=== PATIENT | male | born 1985 | race Caucasian/White ===

== ENCOUNTER 2019-11-14 23:37 | Emergency (ER) | payer SELFPAY ==
[~2019-11-14] VITALS: Ht 188 cm; Wt 83.9 kg
--- NOTE | 2019-11-14 23:50 | NUR ---
Dr. Osorio is at bedside for MSE.
--- NOTE | 2019-11-15 00:18 | NUR ---
Patient discharged to home in stable condition. Written and verbal after care instructions given. Contact Isolation at home instructed to patient to prevent spread of infection.Patient verbalizes understanding of instructions. Stressed follow up or return to ER for worsening s/s. Ambulated out of ER in steady gait.
[2019-11-15 00:19] VITALS: BP 130/80
== END 2019-11-15 00:20 | disposition home or self-care (01) ==
LOC: ER 23:48
DX: B02.9 Zoster without complications (principal)
CPT/HCPCS: A4663